=== PATIENT | male | born 1970 | race Caucasian/White ===

== ENCOUNTER 2017-08-04 07:21 | Emergency (ER) | payer OTHER ==
[~2017-08-04] VITALS: Wt 81.6 kg
[~2017-08-04 07:21] MED LIST: ATARAX,VISTARIL50 MG PO; AUGMENTIN 875 M1 TAB PO; BACTRIM 400 MG-1 TAB PO; BACTRIM DS 8001 TA1 PO; BACTROBAN OINT0.9 GM NAS; BENADRYL50 MG PO; CARBIDOPA/LEVOD1 TA1 PO; CIPRO500 MG PO; CLINDAMYCIN HC300 MG PO; CLINDAMYCIN300 MG PO; CLONIDINE0.1 MG PO; COUMADIN3 M1 PO; Coumadin2 MG PO; DAYPRO600 M1 PO; HYDROXYZINE PAM50 MG PO; KEFLEX500 MG PO; MIRTAZAPINE15 M2 PO; MOTRIN800 MG PO; NKHM; NKHM PO; ONDANSETRON HYDR4 M1 PO; ONDANSETRON4 MG PO; PERCOCET 325 MG1 TA2 PO; PYRIDIUM200 M1 PO; ROBAXIN750 MG PO; SINEMET 25-100M1 TAB PO; Septra Ds 800 M1 TAB PO; THERA1 TAB PO; VICODIN 5/500 505 MG PO; VICODIN 500 MG-1 TAB PO; ZOFRAN 4 MG ED2 TAB PO; ZYPREXA5 M1 PO
[2017-08-04] MEDS ORDERED: SEPTDS PO (07:57)
[2017-08-04] MEDS ORDERED: IBU800 MG PO (07:59)
[2017-08-04] MEDS ORDERED: Zofran4 MG PO (08:21)
== END 2017-08-04 08:21 | disposition home or self-care (01) ==
LOC: ED 07:21
DX: L02.413 Cutaneous abscess of right upper limb (principal); F11.10 Opioid abuse, uncomplicated

== ENCOUNTER 2018-08-21 15:40 | Emergency (ER) | payer MEDICAID ==
[~2018-08-21] VITALS: Ht 185.4 cm; Wt 76.2 kg
[~2018-08-21 15:40] MED LIST changes: +IBU800 MG PO; +SEPTDS PO; +Zofran4 MG PO
[2018-08-21 16:22] LABS: BASO # 0.1 10*3/uL (0.0-0.1); BASO % 0.8 % (0.0-1.0); EOS # 0.1 10*3/uL (0.0-0.4); EOS % 1.3 % (1.0-4.0); HEMATOCRIT 49.5 % (42.0-52.0); HEMOGLOBIN 17.6 g/dl (14.0-18.0); LYMPH # 2.5 10*3/uL (1.3-4.4); LYMPH % 29.3 % (27.0-41.0); MEAN CELL VOLUME 87.5 fl (80.0-94.0); MEAN CORPUSCULAR HGB 31.1 pg (27.0-31.0); MEAN CORPUSCULAR HGB CONC 35.6 g/dl (33.0-37.0); MEAN PLATELET VOLUME 8.8 fl (9.6-12.3); MONO # 0.5 10*3/uL (0.1-1.0); MONO % 5.2 % (3.0-9.0); NEUT # 5.4 10*3/uL (2.3-7.9); NEUT % 63.2 % (47.0-73.0); PLATELET COUNT AUTOMATED 336 10*3/uL (130-400); RED BLOOD COUNT 5.66 10*6/uL (4.50-5.90); RED CELL DISTRI WIDTH 12.6 % (0-14.5); WHITE BLOOD COUNT 8.6 10*3/uL (4.8-10.8)
[2018-08-21 16:36] LABS: ALBUMIN 4.1 gm/dl (3.1-4.5); ALKALINE PHOSPHATASE 69 U/L (45-117); BUN 14 mg/dl (7-24); CHLORIDE 106 mmol/L (98-107); LIPASE 223 U/L (73-393); SGOT/AST 29 IU/L (3-35); SGPT/ALT 98 U/L (12-78); SODIUM 138 mmol/L (136-145); TOTAL PROTEIN 9.3 gm/dL (6.4-8.2)
[2018-08-21] MEDS ORDERED: ZOFRAN4 MG PO (17:01)
[2018-08-21] MEDS ORDERED: PREDNISONE10 MG PO (17:01)
[2018-08-21] MEDS ORDERED: FLONASE ALLERG9.9 ML NAS (17:01)
[2018-08-21] MEDS ORDERED: CLARITIN10 MG PO (17:01)
[2018-12-02] MEDS ORDERED: DOXYCYCLINE100 M3 PO (22:16)
[2018-12-07] MEDS ORDERED: SEPTDS PO (14:21)
== END 2018-08-21 17:34 | disposition home or self-care (01) ==
LOC: ED 15:40
PROVIDERS: Nurse Practitioner Family
DX: B34.9 Viral infection, unspecified (principal); R03.0 Elevated blood-pressure reading, without diagnosis of hypertension; E78.5 Hyperlipidemia, unspecified; F17.200 Nicotine dependence, unspecified, uncomplicated; Z90.49 Acquired absence of other specified parts of digestive tract

== ENCOUNTER 2019-04-07 18:36 | Inpatient (IN) | payer MEDICAID ==
[~2019-04-07] VITALS: Ht 185.4 cm; Wt 83.1 kg
--- NOTE | ~2019-04-07 | EKG ---
[place], [place] ELECTROCARDIOGRAM REPORT NAME: GRADY ROBLES UNIT #: [id number] ROOM: 415 DOCTOR: CATHY DRAFT REPORT BIRTHDATE: [birth year] [facility] Test Date: 2019-04-07 Test Time: 19:16:09 Pat Name: GRADY ROBLES Department: Room: 415 Gender: M Seo Executive: : 1970 Requested By: SHERRI HASSAN DNP Order Number: [id number] Reading MD: Kelby Bose Measurements Intervals [place] Rate: 79 P: 59 NM: 169 QRS: 25 QRSD: 102 T: 46 QT: 391 QTc: 449 Interpretive Statements Sinus rhythm Lateral infarct, recent Borderline ST elevation, anterior leads Baseline wander in lead(s) V2,V6 Compared to ECG 12/03/2018 04:13:33 ST (T wave) deviation now present Myocardial infarct finding still present Electronically Signed On 04-08-2019 9:13:48 PDT by Kelby Bose CM:EKGRPT:ELECTROCARDIOGRAM REPORT 15 2 SHERRI MORGAN DRAFT REPORT SHERRI HASSAN DNP
[~2019-04-07 18:36] MED LIST changes: +CLARITIN10 MG PO; +DOXYCYCLINE100 M3 PO; +FLONASE ALLERG9.9 ML NAS; +PREDNISONE10 MG PO; +ZOFRAN4 MG PO
[2019-04-07 18:37] VITALS: BP 134/67
--- NOTE | 2019-04-07 19:15 | NUR ---
SCATTERED TRACK FOURNIER ON BUE AND BLE EXTREMITIES WITH TRACING INTO GROIN ON LEG.
[2019-04-07 19:32] LABS: BASO # 0.1 10*3/uL (0.0-0.1); BASO % 1.5 % (0.0-1.0); EOS # 0.6 10*3/uL (0.0-0.4); EOS % 6.9 % (1.0-4.0); HEMATOCRIT 38.4 % (42.0-52.0); HEMOGLOBIN 12.9 g/dl (14.0-18.0); LYMPH # 2.6 10*3/uL (1.3-4.4); LYMPH % 28.2 % (27.0-41.0); MEAN CELL VOLUME 89.1 fl (80.0-94.0); MEAN CORPUSCULAR HGB 29.9 pg (27.0-31.0); MEAN CORPUSCULAR HGB CONC 33.6 g/dl (33.0-37.0); MEAN PLATELET VOLUME 9.3 fl (9.6-12.3); MONO # 0.8 10*3/uL (0.1-1.0); MONO % 8.3 % (3.0-9.0); NEUT % 54.9 % (47.0-73.0); PLATELET COUNT AUTOMATED 314 10*3/uL (130-400); RED BLOOD COUNT 4.31 10*6/uL (4.50-5.90); RED CELL DISTRI WIDTH 12.4 % (0-14.5)
[2019-04-07 19:55] LABS: ALBUMIN 3.5 gm/dl (3.1-4.5); ALKALINE PHOSPHATASE 76 U/L (45-117); BUN 14 mg/dl (7-24); CHLORIDE 100 mmol/L (98-107); CREATININE 0.93 mg/dL (0.70-1.30); LIPASE 59 U/L (73-393); POTASSIUM 3.6 mmol/L (3.5-5.1); SGOT/AST 26 IU/L (3-35); SGPT/ALT 22 U/L (12-78); SODIUM 133 mmol/L (136-145); TOTAL PROTEIN 7.9 gm/dL (6.4-8.2)
[2019-04-07 19:56] LABS: TROPONIN I < 0.015 ng/ml (<0.045)
[2019-04-07 20:04] LABS: ACT PARTIAL THROMBO TIME 25.8 SECONDS (20.0-32.1)
--- NOTE | 2019-04-07 20:06 | NUR ---
COMPLAINING OF LEG CRAMPS AND REQUESTING POTASSIUM TABLET. LORETTA POLANCO MADE AWARE.
[2019-04-07 20:19] VITALS: BP 128/72
--- NOTE | 2019-04-07 20:19 | NUR ---
MEDICATED PER ORDERS AND BLANKET AND ICE WATER PROVIDED REQUESTED. DENIES ANY OTHER NEEDS AND IS IN NO OBVIOUS DISTRESS WHILE TALKING ON PHONE, BUT IS NOTED TO HAVE REESTLESS LEGS AND IS A BIT AGITATED WITH WHOMEVER HE IS ON THE PHONE WITH. WILL CONTINUE TO MONITOR.
--- NOTE | 2019-04-07 20:33 | NUR ---
STILL UNABLE TO PROVIDE URINE SPECIMEN. LIGHTS DIMMED AND REMINDED OF NEED FOR URINE ALEXEY. WILL ATTEMPT SHORTLY BUT DOES NOT FEEL THEURGE AT ALL AT THIS TIME.
--- NOTE | 2019-04-07 21:39 | NUR ---
UPDATED ON ROOM ASSIGNMENT AND DOES NOT WANT TO CHANGE INTO GOWN. DENIES WOUNDS AND IS NOT RECEPTIVE TO VISUAL EXAM OF BUTTOCKS AND PERIAREA.
--- NOTE | 2019-04-07 21:40 | NUR ---
SPOKE WITH HELENE, RECEIVING RN TO NOTIFY OF ETA TO ROOM. AWAITING OTHER NURSE TO RETURN BEFORE LEAVING FLOOR.
[2019-04-07 22:00] VITALS: BP 116/97; BP 119/71
--- NOTE | 2019-04-07 22:00 | NUR ---
Time: 2199 A 48 year old MALE admitted to 4E under services of SHERRI MCCALL DO. Pt. arrived via stretcher from ER. Chief complaint: CELLULITIS. SELVIN LIANG
--- NOTE | 2019-04-07 22:24 | NUR ---
PATIENT DENIES ANY HOME MEDICATIONS
[2019-04-07 22:30] VITALS: BP 116/97
--- NOTE | 2019-04-07 22:38 | NUR ---
MEDICATED WITH ROBAXIN FOR MUSCLE ACHES AND REQUIP FOR RESTLESS LEGS
--- NOTE | 2019-04-07 22:47 | NUR ---
PATIENT STATES THAT HE DOES NOT FEEL LIKE HE CAN URINATE AT THIS TIME. INSTRUCTED ON URINATING IN CUP PLACED IN RESTROOM FOR SAMPLES. VERBALIZED UNDERSTANDING
--- NOTE | 2019-04-07 23:10 | NUR ---
OFF FLOOR FOR CT
[2019-04-07 23:40] LABS: BILIRUBIN NEGATIVE (NEGATIVE); BLOOD TRACE-LYSED (NEGATIVE); CLARITY CLEAR (CLEAR); COLOR YELLOW (YELLOW); GLUCOSE NEGATIVE (NEGATIVE); KETONE NEGATIVE (NEGATIVE); LEUKO ESTERASE NEGATIVE (NEGATIVE); NITRITE NEGATIVE (NEGATIVE); SPECIFIC GRAVITY >= 1.030 (1.005-1.030); UROBILINOGEN 0.2 E.U./dl (0.2-1.0)
[2019-04-07 23:49] LABS: URINE AMPHETAMINES < 1000 (1000ng/ml); URINE BARBITURATES < 200 (200ng/ml); URINE BENZODIAZEPINES < 200 (200ng/ml); URINE CANNABINOIDS (THC) < 50 (50ng/ml); URINE COCAINE > 300 (300ng/ml); URINE METHADONE < 300 (300ng/ml); URINE OPIATES > 300 (300ng/ml)
[2019-04-07 23:53] LABS: URINE PHENCYCLIDINE < 25 (25ng/ml)
[2019-04-07 23:56] LABS: WBC 0-2 wbc/hpf (0-5)
--- NOTE | 2019-04-08 01:58 | NUR ---
PATIENT RESTING IN BED WITH EYES CLOSED. MEDICATIONS SEEM EFFECTIVE
[2019-04-08 04:00] VITALS: BP 93/58
--- NOTE | 2019-04-08 05:02 | NUR ---
DR PFEIFFER AWARE OF BLOOD PRESSURE. STATES TO NOT GIVE SCHEDULED CLONIDINE
[2019-04-08 05:52] LABS: BUN 11 mg/dl (7-24); CHLORIDE 102 mmol/L (98-107); CHOLESTEROL 118 mg/dL (<200); POTASSIUM 3.5 mmol/L (3.5-5.1); SODIUM 137 mmol/L (136-145); TRIGLYCERIDES 69 mg/dl (<150); VLDL CHOLESTEROL 14 mg/dL (6-40)
[2019-04-08 05:53] LABS: HDL CHOLESTEROL 37 mg/dl (40-60); LDL CHOLESTEROL 67 mg/dL (9-159)
[2019-04-08 06:01] LABS: BASO # 0.1 10*3/uL (0.0-0.1); BASO % 1.5 % (0.0-1.0); EOS # 0.6 10*3/uL (0.0-0.4); HEMATOCRIT 33.4 % (42.0-52.0); HEMOGLOBIN 11.2 g/dl (14.0-18.0); LYMPH # 2.7 10*3/uL (1.3-4.4); LYMPH % 39.1 % (27.0-41.0); MEAN CELL VOLUME 89.3 fl (80.0-94.0); MEAN CORPUSCULAR HGB 29.9 pg (27.0-31.0); MEAN CORPUSCULAR HGB CONC 33.5 g/dl (33.0-37.0); MEAN PLATELET VOLUME 9.6 fl (9.6-12.3); MONO # 0.7 10*3/uL (0.1-1.0); MONO % 10.1 % (3.0-9.0); NEUT # 2.7 10*3/uL (2.3-7.9); PLATELET COUNT AUTOMATED 272 10*3/uL (130-400); RED BLOOD COUNT 3.74 10*6/uL (4.50-5.90); RED CELL DISTRI WIDTH 12.5 % (0-14.5); WHITE BLOOD COUNT 6.8 10*3/uL (4.8-10.8)
--- NOTE | 2019-04-08 06:53 | NUR ---
DR JANG AWARE OF PODIETRY CONSULT. STATES TO MAKE PATIENT NPO AND HE WILL SEE THE PATIENT TODAY
--- NOTE | 2019-04-08 08:43 | NUR ---
Awake and alert. Reddened rt. foot and LEFt knee to mid thigh. Dr. Rivera in.
[2019-04-08 12:00] VITALS: BP 95/55
[2019-04-08 16:00] VITALS: BP 131/71
--- NOTE | 2019-04-08 17:33 | NUR ---
1412 Medicated for anxiety and discomfort. per PA. . Pt. states is dope sick and might leave. Dr. Rivera was called and is aware. current assessment reveals pt. in constant motion, informed that prn meds are due at 8 pm.
--- NOTE | 2019-04-08 17:40 | NUR ---
Podiatry in this am. Wrapped rt. foot to knee and cancelled NPO> pt. is taking meals well.
[2019-04-08 20:00] VITALS: BP 103/55
--- NOTE | 2019-04-08 20:11 | NUR ---
PATIENT MEDICATED WITH PRN BENTYL, ROBAXIN, VISTARIL, AND ZOFRAN FOR C/O STOMACH CRAMPS, NAUSEA, RESTLESSNESS, AND ANXIETY. WILL MONITOR FOR EFFECTIVENESS.
--- NOTE | 2019-04-08 20:15 | NUR ---
DAX HICKEY D/T BP 103/55, P 50.
--- NOTE | 2019-04-08 21:00 | NUR ---
PATIENT STATED THE PRN MEDICATIONS WERE EFFECTIVE. PATIENT ASKED FOR A BOX LUNCH AND SOME ICE CREAM. SNACK PROVIDED. PATIENT WATCHING TV. CALL LIGHT WITHIN REACH.
[2019-04-09] VITALS: BP 113/61
--- NOTE | 2019-04-09 01:35 | NUR ---
LAB CALLED TO REPORT CRITICAL RESULT OF POSITIVE BLOOD CULTURES IN AEROBIC BOTTLE THAT HAS GRAM + COCCI IN CLUSTERS. DR. PFEIFFER CALLED BUT NO ANSWER. WILL TRY AGAIN.
--- NOTE | 2019-04-09 01:54 | NUR ---
ATTEMPTED TO CALL DR. PFEIFFER AGAIN REGARDING POSITIVE BLOOD CULTURES.
--- NOTE | 2019-04-09 01:55 | NUR ---
DR. PFEIFFER NOTIFIED OF POSITIVE BLOOD CULTURE. ORDER TO REDRAW BLOOD CULTURES.
[2019-04-09 06:07] VITALS: BP 102/58
--- NOTE | 2019-04-09 06:32 | NUR ---
GRADY ROBLES [id number] Please refer to the physician's history and physical for past medical history, comorbid conditions, and allergies. Diagnosis: CELLULITIS, THROMBOPHLEBITIS OF LEG Gilberto Score: 22,LOW OR NO RISK WOUND DESCRIPTIONS: Dressing intact to right lower extremity. Patient stated the foot doctor changed the dressing yesterday. Left knee is red and blanchable at time of assessment. Right foot dressing intact at time of assessment. No drainage noted at time of assessment. Surface the patient is resting on: Isoflex SKIN PREVENTION RECOMMENDATION: 1. Pressure redistribution support surface as appropriate 2. Elevate heels 3. Remove boots/TEDS every shift and reapply 4. Head of bed 30 degrees as tolerated 5. Assess nutrition and hydration 6. Manage moisture 7. Avoid the use of containment devices while in bed 8. Use absorptive products on surfaces limit layers of linens on bed 9. Turn and reposition every 1-2 hours in bed and every 1 hour in chair as tolerated 10. Weight shifts every 15 minutes while up in chair 11. Offloading with pillows or device to keep heels elevated off bed 12. Monitor skin at least every shift 13. Inspect under medical devices twice a day WOUND TREATMENT RECOMMENDATIONS: Patient stated he will follow up with podiatry upon discharge.
[2019-04-09 08:00] VITALS: BP 126/72
[2019-04-09 12:00] VITALS: BP 117/89
--- NOTE | 2019-04-09 13:19 | NUR ---
MOTRIN GIVEN FOR GENERALIZED C/O PAIN AND ACHING. CALL LIGHT IN REACH. ABX INFUSING WITH EASE.
--- NOTE | 2019-04-09 15:32 | NUR ---
PER PT A FIREND TOLD HIM ABOUT DRUGS HIDDEN IN HIS HOUSE AND PATIENT CANT STOP THINKING ABOUT IT AND NEEDS TO LEAVE, PT ENCOURAGED TO STAY PRN MEDICATIOSN OFFERED PT LEFT AMA, NURSING SUPERIVSOR NOTIFIED, BILL SUBRAMANIAN NOTIFIED
--- NOTE | 2019-04-09 15:55 | NUR ---
Foreign Language Interpreter in to talk to patient. Patient states lives at HOME with MOTHER. There are NO steps in the home. Physician: NONE [facility]acy[facility] Home health services: NONE Patient's level of ADLs: INDEPENDENT Patient has working utilities: YES DME: NONE Follow-up physician's appointment after d/c: WILL PICK ONE AND MAKE APPOINTMENT Does patient want to access PORTAL?: NO Discharge plan PT LIVES AT HOME WITH HIS MOTHER AND IS INDEPENDENT IN HIS CARE. DENIES HOME NEEDS ON DISCHARGE. WILL RETURN HOME WITH MOTHER. WILL CONTINUE TO FOLLOW. STATES HE WILL HAVE A RIDE HOME. . EDGAR MCCURDY
--- NOTE | 2019-04-10 10:54 | NUR ---
Received call from Jeri at [facility] [facility] stating she will need clinicals by end of business day today. Printed and faxed clinicals to [phone]
--- NOTE | 2019-04-11 07:57 | NUR ---
[facility] FINAL REPORT CALLED FROM BLOOD CULTURES OBTAINED ON 04/07/19. LAB STATES THAT PATIENT WAS ADMITTED TO FLOOR AND LEFT AMA.
--- NOTE | 2019-04-11 08:03 | NUR ---
NOTIFIED DR ROBERTSON OF POSITIVE BLOOD CULTURE RESULTS. STATES TO CALL PATIENT AND NOTIFY THEM TO COME BACK TO THE HOSPITAL.
--- NOTE | 2019-04-11 08:05 | NUR ---
ATTEMPTED TO CALL PATIENT TWICE. LEFT MESSAGE FOR GRADY TO RETURN CALL TO ER.
== END 2019-04-09 15:40 | disposition left against medical advice (07) | DRG 294 ==
LOC: ED 18:36 → EDHOLD 21:03 → 4E 21:03
PROVIDERS: Nurse Practitioner Family; Student in an Organized Health Care Education/Training Program; ADMIT Internal Medicine
DX: I80.3 Phlebitis and thrombophlebitis of lower extremities, unspecified (principal); E87.1 Hypo-osmolality and hyponatremia; L03.116 Cellulitis of left lower limb; L03.115 Cellulitis of right lower limb; E44.0 Moderate protein-calorie malnutrition; B96.89 Other specified bacterial agents as the cause of diseases classified elsewhere; M25.462 Effusion, left knee; E78.5 Hyperlipidemia, unspecified; B19.20 Unspecified viral hepatitis C without hepatic coma; F32.9 Major depressive disorder, single episode, unspecified; D64.9 Anemia, unspecified; Z53.21 Procedure and treatment not carried out due to patient leaving prior to being seen by health care provider; R00.1 Bradycardia, unspecified; E83.41 Hypermagnesemia; F11.10 Opioid abuse, uncomplicated; F14.10 Cocaine abuse, uncomplicated; Z86.14 Personal history of Methicillin resistant Staphylococcus aureus infection; Z86.718 Personal history of other venous thrombosis and embolism; Z90.49 Acquired absence of other specified parts of digestive tract; Z87.891 Personal history of nicotine dependence; Z82.49 Family history of ischemic heart disease and other diseases of the circulatory system; Z82.3 Family history of stroke; Z80.8 Family history of malignant neoplasm of other organs or systems; Z82.69 Family history of other diseases of the musculoskeletal system and connective tissue; Z68.24 Body mass index [BMI] 24.0-24.9, adult

== ENCOUNTER 2020-04-16 18:43 | Inpatient (IN) | payer MEDICAID ==
[~2020-04-16] VITALS: Ht 185.4 cm; Wt 83.5 kg
[~2020-04-16 18:43] MED LIST changes: +AUGMENTIN 875-875 MG PO
[2020-04-16 18:51] VITALS: BP 132/83
--- NOTE | 2020-04-16 20:59 | NUR ---
PT TO ROOM VIA W/C AT THIS TIME.
[2020-04-16 22:55] LABS: BASO # 0.1 10*3/uL (0.0-0.1); BASO % 0.6 % (0.0-1.0); EOS # 0.3 10*3/uL (0.0-0.4); EOS % 2.1 % (1.0-4.0); HEMATOCRIT 42.3 % (42.0-52.0); LYMPH # 2.4 10*3/uL (1.3-4.4); LYMPH % 20.5 % (27.0-41.0); MEAN CELL VOLUME 85.8 fl (80.0-94.0); MEAN CORPUSCULAR HGB 27.6 pg (27.0-31.0); MEAN CORPUSCULAR HGB CONC 32.2 g/dl (33.0-37.0); MEAN PLATELET VOLUME 8.7 fl (9.6-12.3); MONO # 0.8 10*3/uL (0.1-1.0); MONO % 6.6 % (3.0-9.0); NEUT # 8.2 10*3/uL (2.3-7.9); NEUT % 69.9 % (47.0-73.0); PLATELET COUNT AUTOMATED 356 10*3/uL (130-400); RED BLOOD COUNT 4.93 10*6/uL (4.50-5.90); RED CELL DISTRI WIDTH 13.2 % (0-14.5); WHITE BLOOD COUNT 11.7 10*3/uL (4.8-10.8)
[2020-04-16 23:10] LABS: ALBUMIN 3.6 gm/dl (3.1-4.5); ALKALINE PHOSPHATASE 94 U/L (45-117); BUN 9 mg/dl (7-24); CHLORIDE 99 mmol/L (98-107); LIPASE 66 U/L (73-393); SGOT/AST 44 IU/L (3-35); SGPT/ALT 78 U/L (12-78); SODIUM 134 mmol/L (136-145); TOTAL PROTEIN 9.5 gm/dL (6.4-8.2)
[2020-04-17 00:28] LABS: URINE AMPHETAMINES < 1000 (1000ng/ml); URINE BARBITURATES < 200 (200ng/ml); URINE BENZODIAZEPINES < 200 (200ng/ml); URINE CANNABINOIDS (THC) < 50 (50ng/ml); URINE COCAINE < 300 (300ng/ml); URINE METHADONE < 300 (300ng/ml); URINE OPIATES < 300 (300ng/ml)
[2020-04-17 00:29] LABS: URINE PHENCYCLIDINE < 25 (25ng/ml)
--- NOTE | 2020-04-17 00:35 | NUR ---
RESTORIL EFFECTIVE FOR INSOMNIA. PT. DROWSY
--- NOTE | 2020-04-17 06:49 | NUR ---
PT RESTING IN BED WITH EYES CLOSED NO DISTRESS NOTED RN WILL CONTINUE TO MONITOR
[2020-04-17 08:00] VITALS: BP 131/73
--- NOTE | 2020-04-17 09:39 | NUR ---
PT RESTING IN ROOM, REPORTS HE IS IN PAIN, ID RESIDENCE WAS AT THE BEDSIDE, REPORTS HE WAS WAITING ON HIS ATTENDING FOR ORDERES. REPORTS HE WAS GOING TO ORDER PAIN MEDICATION BUT WAS GOING TO WAIT ON THE ADVISEMENT OF HIS ATTENDING. PT IS REFUSING IV ANTIBOTICS TO BE STARTED AND LOVENOX INJECTION, PT REPORTS HE IS JUST TO LEAVE W/O PAIN MEDICATED, ID PAGED.
--- NOTE | 2020-04-17 10:33 | NUR ---
WOUND CULTURE WAS ORDERED ON NOGHT SHIFT AND WAS NOT COLLECTED, WOUND CARE WAS HERE THIS AM AND DRESSED THE WOUND, PT IS TO POSSIBLE BE TAKING TO SURGERY. I HAVE NOT YET HEARD FROM ID. WAITING FOR THE CALL.
--- NOTE | 2020-04-17 10:47 | NUR ---
DR VILLARREAL AT THE BEDSIDE, PAIN AND NAUSEA MEDICATION ORDERED. PT IS NPO FOR SURGERY SOMTIMR TODAY. RESIDENCE DR NUNN NOTIFIED.
[2020-04-17 12:00] VITALS: BP 128/71
[2020-04-17 14:03] VITALS: BP 118/71
--- NOTE | 2020-04-17 15:33 | NUR ---
NOTIFIED DR NUNN PT IS REQUESTING PAIN MEDICATION. WAITING ON MED ORDERS.
--- NOTE | 2020-04-17 16:56 | NUR ---
PT REPORTS HE I SNOT HAPPY WITH NORCO FOR PAIN, PT REQUESTING IV DILAUDID. STATES HE WASNTS TO SIGN OUT AMA IF HIS REQUEST IS NOT MEANT. DR NUNN NOTIFIED. REPORTS HE WILL LOOK AT THE PAIN MED LIST, STATES OK FOR HIM TO SIGN OUT IS THAT IS THE PT REQUEST.
--- NOTE | 2020-04-17 17:51 | NUR ---
PT MEDICATED WITH 1 MG IV MORPHINE. PT IS HAPPY AT THIS TIME. REPORTS HE WILL WAIT TO SEE IF IT WORKS TO DECIDE IF I WANT TO STAY.
--- NOTE | 2020-04-17 18:30 | NUR ---
PT WAS HAPPY WITH THE MORPHINE, STATES HE WILL STAY.
[2020-04-17 19:57] VITALS: BP 112/78
--- NOTE | 2020-04-17 19:59 | NUR ---
PT RESTING QUIELTY, NO DISTRESS NOTED AT THIS TIME. CALL LIGHT IN REACH.
[2020-04-17 20:25] VITALS: BP 136/75
--- NOTE | 2020-04-17 20:25 | NUR ---
PATIENT ADMITTED TO ROOM 505 BED 2 FROM ED HOLD. PATIENT BROUGHT WITH BELONGINGS. Time: 2024 A 49 year old male admitted to 5E under services of AMOL SALGADO DO. Pt. arrived via stretcher from ER. Chief complaint: cellulitis lower right leg. ELO HERNANDEZ
--- NOTE | 2020-04-17 20:47 | NUR ---
TYLENOL GIVEN PER ORDER FOR HEADACHE RATED "6". SEE MAR.
--- NOTE | 2020-04-17 21:45 | NUR ---
TYLENOL HELPED WITH HEADACHE PAIN PER PATIENT.
--- NOTE | 2020-04-17 22:10 | NUR ---
PATIENT C/O FEELING "ANTSY" VISIBILY SEEING PATIENT SHAKING FEET AND MOVING AROUND. CALLED DR. GU AND NOTIFIED HIM OF THIS AND ORDERS TO BE RECEIVED.
--- NOTE | 2020-04-17 23:07 | NUR ---
ATIVAN GIVEN FOR ANXIETY, REQUIP GIVEN FOR RESTLESS LEGS, MORPHINE GIVEN FOR PAIN RATED "8" IN RIGHT LOWER LEG PER PT. SEE MAR.
--- NOTE | 2020-04-17 23:38 | NUR ---
RESTORIL GIVE PER ORDER FOR PATIENT REQUEST FOR SOMETHING TO HELP HIM SLEEP. SEE MAR.
[2020-04-18] VITALS: BP 131/76
--- NOTE | 2020-04-18 | NUR ---
ATIVAN AND MORPHINE EFFECTIVE FOR CALMING PATIENT AND PAIN PER PT.
--- NOTE | 2020-04-18 00:25 | NUR ---
PATIENT AWAKEND AND WANTED SOMETHING MORE FOR PAIN. RESTORIL WAS EFFECTIVE. NORCO FOR PAIN RIGHT LOWER LEG RATED "6" SEE MAR.
--- NOTE | 2020-04-18 01:25 | NUR ---
PATIENT SLEEPING. NORCO EFFECTIVE. RESP EASY AND REG.
--- NOTE | 2020-04-18 03:31 | NUR ---
24 HR chart check completed.
--- NOTE | 2020-04-18 06:17 | NUR ---
MORPHINE GIVEN PER ORDER FOR PAIN RATED "8' RIGHT LOWER LEG. SEE MAR.
[2020-04-18 06:31] LABS: CHLORIDE 107 mmol/L (98-107); POTASSIUM 3.9 mmol/L (3.5-5.1); SODIUM 138 mmol/L (136-145)
[2020-04-18 06:43] LABS: ALBUMIN 2.6 gm/dl (3.1-4.5); BUN 8 mg/dl (7-24); CREATININE 0.77 mg/dL (0.70-1.30); SGOT/AST 32 IU/L (3-35); SGPT/ALT 49 U/L (12-78); TOTAL PROTEIN 7.5 gm/dL (6.4-8.2)
[2020-04-18 06:44] LABS: ALKALINE PHOSPHATASE 71 U/L (45-117)
--- NOTE | 2020-04-18 07:01 | NUR ---
MORPHINE HELPS SOME WITH PAIN PER PT.
[2020-04-18 07:17] LABS: BASO # 0.1 10*3/uL (0.0-0.1); BASO % 1.1 % (0.0-1.0); EOS # 0.3 10*3/uL (0.0-0.4); EOS % 4.1 % (1.0-4.0); HEMATOCRIT 33.1 % (42.0-52.0); LYMPH # 2.5 10*3/uL (1.3-4.4); LYMPH % 33.6 % (27.0-41.0); MEAN CELL VOLUME 86.2 fl (80.0-94.0); MEAN CORPUSCULAR HGB 27.6 pg (27.0-31.0); MEAN PLATELET VOLUME 8.6 fl (9.6-12.3); MONO # 0.7 10*3/uL (0.1-1.0); MONO % 9.7 % (3.0-9.0); NEUT # 3.9 10*3/uL (2.3-7.9); NEUT % 51.1 % (47.0-73.0); PLATELET COUNT AUTOMATED 349 10*3/uL (130-400); RED BLOOD COUNT 3.84 10*6/uL (4.50-5.90); RED CELL DISTRI WIDTH 13.2 % (0-14.5); WHITE BLOOD COUNT 7.5 10*3/uL (4.8-10.8)
[2020-04-18 08:00] VITALS: BP 134/78
--- NOTE | 2020-04-18 10:05 | NUR ---
NORCO 5/325 MG GIVEN FOR C/O RIGHT LEG,04/19.
--- NOTE | 2020-04-18 10:58 | NUR ---
GAS ENGINE PERFORMANCE ENGINEER CONTACTED PATIENT INSURANCE. THIS PATIENT DOES HAVE A TRANSPORTATION BENEFIT. PATIENT WOULD NEED TO CALL [phone] TO ARRANGE TRANSPORTATION. ONCE CALLED IT COULD TAKE APPROXIMATELY 1 HOUR FOR TRANSPORT TO ARRIVE. SLUDGE FILTRATION ATTENDANT IS AWARE.
--- NOTE | 2020-04-18 11:32 | NUR ---
Molding And Trim Installer in to talk to patient. Patient states lives at HOME with MOTHER. There are 12 steps in the home. Physician: NONE AT THIS TIME [facility] Home health services: NONE Patient's level of ADLs: INDEPENDENT Patient has working utilities: YES DME: NONE Follow-up physician's appointment after d/c: WILL BE MADE BY HOSPITALIST NURSE DIRECTOR ON DISCHARGE Does patient want to access PORTAL?: NO Discharge plan PT LIVES AT HOME WITH MOTHER AND IS INDEPENDENT IN HIS CARE. PT STATES HE PLANS TO RETURN HOME WITH MOTHER ON DISCHARGE WHEN MEDICALLY STABLE. DENIES NEEDS AT THIS TIME. STATES HE WILL NEED A RIDE HOME. MAINTENANCE TRUCK DRIVER CALLED INSURANCE AND PT DOES HAVE BENEFITS TO TAKE HIM HOME. NUMBER TO CALL IS IN HER NOTES. WILL CONTINUE TO FOLLOW. EDGAR MCCURDY
[2020-04-18 12:00] VITALS: BP 132/55
--- NOTE | 2020-04-18 13:05 | NUR ---
SPOKE TO [facility] RN AND THEY ARE CURRENTLY DOING ADMISSION BUT WOULD CHECK BACK LATER TO SEE IF THEY COULD ATTEMPT IV ACCESS. PT CURRENTLY STILL HAS NO IV ACCESS. DR NUNN AWARE.
--- NOTE | 2020-04-18 14:07 | NUR ---
NORCO 5/325 MG GIVEN FOR C/O PAIN,02/17.
--- NOTE | 2020-04-18 14:07 | NUR ---
NORCO 5/325 MG GIVEN FOR C/O PAIN TO RIGHT LEG,02/17.
[2020-04-18 16:00] VITALS: BP 144/74
--- NOTE | 2020-04-18 16:50 | NUR ---
DR NUNN PLACED RIGHT SUBCLAVIAN CVC WITHOUT DIFFICULTY. PT TOLERATED WELL.
--- NOTE | 2020-04-18 19:30 | NUR ---
PT RESTING IN BED. RESPS EASY AND NON LABORED. NO S/S OF DISTRESS NOTED. VSS. WHITE BOARD UPDATED. POC DISCUSSED W PT.A/O X3. RIGHT IJ IV NOTED- DRSG C/D/I. C/O 04/19 UNBEARABLE PAIN TO RLE-DRESSING C/D/I. RESTING IN BED WATCHING TV. WILL CONTINUE TO MONITOR. CALL LIGHT WITHIN REACH.
[2020-04-18 20:00] VITALS: BP 133/75
--- NOTE | 2020-04-18 20:54 | NUR ---
SPOKE W DR BRIZUELA REGARDING PTS COMPLAINTS OF PAIN. STATES HE WILL BE UP TO TALK WITH THE PATIENT.
--- NOTE | 2020-04-18 21:07 | NUR ---
DR BRIZUELA INTO SEE PT
--- NOTE | 2020-04-18 22:29 | NUR ---
P C/O 6/10 ACHING/THROBBING RLE PAIN, ALSO REQUESTING SLEEPING PILL.MEDICATED PER ORDER. RESPS EASY AND NON LABORED. WILL CONTINUE TO MONITOR FOR RELIEF. VOICES NO OTHER CONCERNS. CALL LIGHT WITHIN REACH.
--- NOTE | 2020-04-18 23:29 | NUR ---
MEDICATION MOSTLY EFFECTIVE PER PT . STATES HE WANTS TORADOL AT MIDNIGHT.
[2020-04-19] VITALS: BP 130/70
--- NOTE | 2020-04-19 | NUR ---
PT REQUESTING HIS PAIN SHOT. C/O 03/20 RLE PAIN. MEDICATED PER ORDER. WILL MONITOR FOR RELIEF. RESPS EASY AND NON LABORED. SITTING UP IN BED WATCHING TV.CALL LIGHT WITHIN REACH.
--- NOTE | 2020-04-19 00:41 | NUR ---
TORADOL APPEARS EFFECTIVE, PT SLEEPING. RESPS EASY AND NONLABORED. NO S/S OF DISTRESS NOTED. CALL LIGHT WITHIN REACH
--- NOTE | 2020-04-19 02:27 | NUR ---
PT STATING HE HAS BEEN UP ALL NIGHT AND UNABLE TO SLEEP. CALLED DR BRIZUELA AND INFORMED HIM OF THIS-STATES HE WILL PUT ORDERS IN.
--- NOTE | 2020-04-19 02:37 | NUR ---
MEDICATED WITH X1 DOSE OF IV BENEDRYL.WILL CONTINUE TO MONITOR.RESPS EASY AND NON LABORED. CALL LIGHT WITHIN REACH.
--- NOTE | 2020-04-19 03:30 | NUR ---
BENEDRYL APPEARS EFFECTIVE. PT SLEEPING. RESPS EASY AND NON LABORED. CALL LIGHT WITHIN REACH.
--- NOTE | 2020-04-19 03:50 | NUR ---
24 HR chart check completed.
--- NOTE | 2020-04-19 05:50 | NUR ---
PT C/O 02/17 LEG PAIN AND MUSCLE CRAMPS. MEDICATED PER ORDER. WILL MONITOR FOR RELIEF. RESPS EASY AND NON LABORED. CALL LIGHT WITHIN REACH.
--- NOTE | 2020-04-19 05:54 | NUR ---
LAB CALLED WITH CRITICAL VANCO TROUGH OF 20.9. NOTIFIED.
--- NOTE | 2020-04-19 05:59 | NUR ---
VANC STOPPED D/T TROUGH BEING 20.9 THIS MORNING.
--- NOTE | 2020-04-19 06:43 | NUR ---
MEDICATION APPEARS EFFECTIVE. PT SLEEPING. RESPS EASY AND NON LABORED. CALL LIGHT IWTHIN REACH.
[2020-04-19 08:00] VITALS: BP 130/70
--- NOTE | 2020-04-19 08:00 | NUR ---
Neurological: awake,alert,oriented Respiratory: no problem Breath sounds: clear Cough: none Cardiovascular: no problem Gastrointestinal: soft Genito/Urinary: no problem Musculoskeketal: AMBULATORY BEAR KNOX
[2020-04-19 12:00] VITALS: BP 143/76
[2020-04-19 16:00] VITALS: BP 135/83
[2020-04-19 20:00] VITALS: BP 148/63
--- NOTE | 2020-04-19 20:30 | NUR ---
NORCO GIVEN PER PATIENT REQUEST FOR COMPLAINTS OF PAIN RATED 7/10. WILL ASSESS EFFECTIVENESS.
--- NOTE | 2020-04-19 21:30 | NUR ---
NORCO EFFECTIVE PER PATIENT. WILL CONTINUE TO MONITOR.
--- NOTE | 2020-04-19 22:58 | NUR ---
RESTORIL GIVEN PER PATIENT REQUEST FOR COMPLAINTS OF INSOMNIA. WILL ASSESS EFFECTIVENESS.
[2020-04-20] VITALS: BP 152/76
--- NOTE | 2020-04-20 00:44 | NUR ---
NORCO GIVEN PER PATIENT REQUEST FOR COMPLAINTS OF PAIN RATED 8/10 IN LEFT FOOT WHERE WOUNDS ARE. WILL ASSESS EFFECTIVENESS.
--- NOTE | 2020-04-20 01:40 | NUR ---
NORCO EFFECTIVE PER PATIENT.
--- NOTE | 2020-04-20 05:18 | NUR ---
TORADOL GIVEN PER PATIENT REQUEST FOR COMPLAINTS OF PAIN IN LOWER LEG RATED 7/10. WILL ASSESS EFFECTIVENESS.
[2020-04-20 06:02] LABS: BUN 12 mg/dl (7-24); CHLORIDE 107 mmol/L (98-107); CREATININE 0.78 mg/dL (0.70-1.30); POTASSIUM 3.7 mmol/L (3.5-5.1); SODIUM 140 mmol/L (136-145)
[2020-04-20 06:06] LABS: BASO # 0.1 10*3/uL (0.0-0.1); BASO % 1.1 % (0.0-1.0); EOS # 0.3 10*3/uL (0.0-0.4); LYMPH # 3.3 10*3/uL (1.3-4.4); MEAN CELL VOLUME 86.4 fl (80.0-94.0); MEAN CORPUSCULAR HGB 27.2 pg (27.0-31.0); MEAN CORPUSCULAR HGB CONC 31.5 g/dl (33.0-37.0); MEAN PLATELET VOLUME 8.6 fl (9.6-12.3); MONO # 0.5 10*3/uL (0.1-1.0); MONO % 5.4 % (3.0-9.0); NEUT # 4.1 10*3/uL (2.3-7.9); PLATELET COUNT AUTOMATED 348 10*3/uL (130-400); RED BLOOD COUNT 3.82 10*6/uL (4.50-5.90); RED CELL DISTRI WIDTH 13.1 % (0-14.5); WHITE BLOOD COUNT 8.3 10*3/uL (4.8-10.8)
[2020-04-20 08:00] VITALS: BP 152/73
--- NOTE | 2020-04-20 08:00 | NUR ---
Neurological: awake,alert,oriented Respiratory: easy, regular,no distress Breath sounds: clear Cough: none Cardiovascular: no problem Gastrointestinal: soft Genito/Urinary: no problem Musculoskeketal: Surgical incision BEAR KNOX
--- NOTE | 2020-04-20 11:00 | NUR ---
PLACED IN CONTACT ISOLATION D/T WC COME BACK WITH MRSA.
[2020-04-20 12:00] VITALS: BP 130/86
[2020-04-20 16:00] VITALS: BP 170/80
--- NOTE | 2020-04-20 16:32 | NUR ---
C/O LEG PAIN. MEDICATED PER PRN ORDER.
[2020-04-20 20:00] VITALS: BP 139/91
--- NOTE | 2020-04-20 20:59 | NUR ---
MEDICATED WITH PRN NORCO FOR C/O PAIN IN LEG RATED 8/10 ON A 0/10 PAIN SCALE. WILL MONITOR
--- NOTE | 2020-04-20 21:34 | NUR ---
MEDICATION SOMEWHAT EFFECTIVE PER PATIENT
--- NOTE | 2020-04-20 23:51 | NUR ---
MEDICATED WITH PRN RESTORIL FOR C/O SLEEPLESSNESS. WILL MONITOR
[2020-04-21] VITALS: BP 144/81
--- NOTE | 2020-04-21 00:51 | NUR ---
PATIENT RESTING WITH EYES CLOSED. MEDICATION SEEMS EFFECTIVE
--- NOTE | 2020-04-21 04:01 | NUR ---
PATIENT RESTING IN BED WITH NO S/S OF DISTRESS. BED IN LOWEST POSITION, CALL LIGHT IN REACH
[2020-04-21 07:00] LABS: BASO # 0.1 10*3/uL (0.0-0.1); BASO % 0.9 % (0.0-1.0); EOS # 0.4 10*3/uL (0.0-0.4); EOS % 3.9 % (1.0-4.0); HEMATOCRIT 33.6 % (42.0-52.0); LYMPH # 3.4 10*3/uL (1.3-4.4); LYMPH % 36.8 % (27.0-41.0); MEAN CELL VOLUME 86.8 fl (80.0-94.0); MEAN CORPUSCULAR HGB 27.6 pg (27.0-31.0); MEAN CORPUSCULAR HGB CONC 31.8 g/dl (33.0-37.0); MEAN PLATELET VOLUME 9.1 fl (9.6-12.3); MONO # 0.5 10*3/uL (0.1-1.0); MONO % 5.8 % (3.0-9.0); NEUT # 4.7 10*3/uL (2.3-7.9); NEUT % 51.5 % (47.0-73.0); PLATELET COUNT AUTOMATED 343 10*3/uL (130-400); RED BLOOD COUNT 3.87 10*6/uL (4.50-5.90); RED CELL DISTRI WIDTH 13.2 % (0-14.5); WHITE BLOOD COUNT 9.2 10*3/uL (4.8-10.8)
[2020-04-21 07:12] LABS: BUN 12 mg/dl (7-24); CHLORIDE 107 mmol/L (98-107); CREATININE 0.83 mg/dL (0.70-1.30); POTASSIUM 3.6 mmol/L (3.5-5.1); SODIUM 141 mmol/L (136-145)
[2020-04-21 08:00] VITALS: BP 142/89
--- NOTE | 2020-04-21 08:00 | NUR ---
Neurological: awake,alert,oriented Respiratory: easy, regular,no distress Breath sounds: clear Cough: none Cardiovascular: no problem Gastrointestinal: adequate output Genito/Urinary: no problem Musculoskeketal: AMBULATORY BEAR KNOX
[2020-04-21 12:00] VITALS: BP 140/76
--- NOTE | 2020-04-21 12:04 | NUR ---
C/O RT LEG PAIN. ADMINISTERED PRN PAIN MEDICATION PER ORDER.
--- NOTE | 2020-04-21 13:00 | NUR ---
PAIN MEDICATION EFFECTIVE.
--- NOTE | 2020-04-21 13:59 | NUR ---
PT CONTINUES TO STATE HE WILL RETURN HOME ON DISCHARGE WITH NO NEW NEEDS.
[2020-04-21] MEDS ORDERED: DOXYCYCLINE100 M3 PO (15:47)
[2020-04-21 16:00] VITALS: BP 169/78
--- NOTE | 2020-04-21 17:03 | NUR ---
C/O RT. LEG PAIN. ADMINISTERED PRN MEDICATION PER ORDER.
--- NOTE | 2020-04-21 17:30 | NUR ---
REMOVED CVP LINE TO RT.IJ. CATH. INTACT. MINIMAL BLEEDING NOTED. PRESSURE APPLIED THEN PRESSURE DRESSING APPLIED. WILL MONITOR.
--- NOTE | 2020-04-21 18:00 | NUR ---
PAIN MEDS EFFECTIVE
--- NOTE | 2020-04-21 18:28 | NUR ---
PRESSURE DRESSING TO RT. NECK INTACT WITH NO SHADOWING. GAVE DISCHARGE ORDERS AND PATIENT VERBALIZED UNDERSTANDING. LEFT AMBULATORY TO ER FOR HIS RIDE. TOOK ALL BELONGINGS WITH HIM.
== END 2020-04-21 19:28 | disposition home or self-care (01) | DRG 602 ==
LOC: ED 18:43 → 5E 04-17 00:20 → EDHOLD 04-17 00:20 → 5E 04-17 19:07
PROVIDERS: Internal Medicine; Physician Assistant; ADMIT Family Medicine; ATTEND Family Medicine
DX: L03.115 Cellulitis of right lower limb (principal); E43 Unspecified severe protein-calorie malnutrition; E87.2 Acidosis; E87.1 Hypo-osmolality and hyponatremia; L02.415 Cutaneous abscess of right lower limb; F11.29 Opioid dependence with unspecified opioid-induced disorder; R76.8 Other specified abnormal immunological findings in serum; F32.9 Major depressive disorder, single episode, unspecified; R00.0 Tachycardia, unspecified; D64.9 Anemia, unspecified; R74.01 Elevation of levels of liver transaminase levels; E78.5 Hyperlipidemia, unspecified; B95.62 Methicillin resistant Staphylococcus aureus infection as the cause of diseases classified elsewhere; Z87.891 Personal history of nicotine dependence; Z82.49 Family history of ischemic heart disease and other diseases of the circulatory system; Z82.3 Family history of stroke; Z82.69 Family history of other diseases of the musculoskeletal system and connective tissue; Z80.8 Family history of malignant neoplasm of other organs or systems; Z90.49 Acquired absence of other specified parts of digestive tract

== ENCOUNTER 2020-09-24 11:46 | Emergency (ER) | payer MEDICAID ==
[~2020-09-24] VITALS: Wt 86.2 kg
[2020-09-24] MEDS ORDERED: DOXYCYCLINE100 M3 PO ×2 (13:56)
[2020-10-07] MEDS ORDERED: VITAMIN D350 MC2 PO (17:23)
[2020-10-07] MEDS ORDERED: DOXYCYCLINE100 M3 PO (17:23)
[2020-10-07] MEDS ORDERED: HYDROCODONE-AC1 EAC1 PO (17:23)
== END 2020-09-24 14:02 | disposition home or self-care (01) ==
LOC: ED 11:46
DX: T40.411A Poisoning by fentanyl or fentanyl analogs, accidental (unintentional), initial encounter (principal); R40.20 Unspecified coma; L03.90 Cellulitis, unspecified; Z79.2 Long term (current) use of antibiotics; Z90.49 Acquired absence of other specified parts of digestive tract; Z87.891 Personal history of nicotine dependence; Y92.89 Other specified places as the place of occurrence of the external cause

== ENCOUNTER 2021-11-01 15:02 | Emergency (ER) | payer OTHER ==
[~2021-11-01 15:02] MED LIST changes: +HYDROCODONE-AC1 EAC1 PO; +VITAMIN D350 MC2 PO
== END 2021-11-01 16:00 | disposition left against medical advice (07) ==
LOC: ED 15:02
DX: R06.02 Shortness of breath (principal); Z53.21 Procedure and treatment not carried out due to patient leaving prior to being seen by health care provider

== ENCOUNTER 2021-11-01 17:25 | Inpatient (IN) | payer OTHER ==
[~2021-11-01] VITALS: Ht 185.4 cm; Wt 80.5 kg
[2021-11-01 17:34] VITALS: BP 128/85
[2021-11-01 18:23] LABS: BASO # 0.1 10*3/uL (0.0-0.1); BASO % 0.8 % (0.0-1.0); EOS # 0.2 10*3/uL (0.0-0.4); EOS % 2.6 % (1.0-4.0); HEMATOCRIT 42.7 % (42.0-52.0); LYMPH # 1.8 10*3/uL (1.3-4.4); LYMPH % 24.1 % (27.0-41.0); MEAN CELL VOLUME 83.6 fl (80.0-94.0); MEAN CORPUSCULAR HGB CONC 33.5 g/dl (33.0-37.0); MEAN PLATELET VOLUME 8.9 fl (9.6-12.3); MONO # 0.4 10*3/uL (0.1-1.0); MONO % 5.7 % (3.0-9.0); NEUT # 4.8 10*3/uL (2.3-7.9); NEUT % 66.5 % (47.0-73.0); PLATELET COUNT AUTOMATED 432 10*3/uL (130-400); RED BLOOD COUNT 5.11 10*6/uL (4.50-5.90); RED CELL DISTRI WIDTH 12.9 % (0-14.5); WHITE BLOOD COUNT 7.3 10*3/uL (4.8-10.8)
[2021-11-01 18:34] VITALS: BP 107/80
[2021-11-01 18:34] LABS: INTERNATIONAL NORM RATIO 1.1 (2.0-3.5)
[2021-11-01 18:39] LABS: ALKALINE PHOSPHATASE 83 U/L (45-117); BUN 7 mg/dl (7-24); CHLORIDE 103 mmol/L (98-107); CPK 61 U/L (39-308); CREATININE 1.11 mg/dL (0.70-1.30); POTASSIUM 3.3 mmol/L (3.5-5.1); SGOT/AST 27 IU/L (3-35); SGPT/ALT 47 U/L (12-78); SODIUM 139 mmol/L (136-145); TOTAL PROTEIN 9.8 gm/dL (6.4-8.2)
[2021-11-01 19:22] VITALS: BP 119/82
[2021-11-01 22:49] VITALS: BP 121/81
[2021-11-01 23:05] VITALS: BP 119/93
[2021-11-02 05:31] LABS: ALKALINE PHOSPHATASE 65 U/L (45-117); BUN 9 mg/dl (7-24); CHLORIDE 103 mmol/L (98-107); CREATININE 0.97 mg/dL (0.70-1.30); POTASSIUM 3.3 mmol/L (3.5-5.1); SGOT/AST 20 IU/L (3-35); SGPT/ALT 33 U/L (12-78); SODIUM 139 mmol/L (136-145); TOTAL PROTEIN 7.5 gm/dL (6.4-8.2)
[2021-11-02 06:12] LABS: BASO # 0.1 10*3/uL (0.0-0.1); BASO % 0.9 % (0.0-1.0); EOS # 0.4 10*3/uL (0.0-0.4); EOS % 4.9 % (1.0-4.0); LYMPH # 2.7 10*3/uL (1.3-4.4); LYMPH % 34.3 % (27.0-41.0); MEAN CELL VOLUME 85.1 fl (80.0-94.0); MEAN PLATELET VOLUME 9.3 fl (9.6-12.3); MONO # 0.7 10*3/uL (0.1-1.0); MONO % 8.9 % (3.0-9.0); NEUT % 50.7 % (47.0-73.0); PLATELET COUNT AUTOMATED 361 10*3/uL (130-400); RED BLOOD COUNT 4.35 10*6/uL (4.50-5.90); RED CELL DISTRI WIDTH 13.2 % (0-14.5); WHITE BLOOD COUNT 7.9 10*3/uL (4.8-10.8)
[2021-11-02 08:00] VITALS: BP 114/63
[2021-11-02 11:47] VITALS: BP 131/78
[2021-11-02 14:30] LABS: BILIRUBIN Negative (Negative); BLOOD Negative (Negative); CLARITY Cloudy (Clear); COLOR Yellow (Yellow); GLUCOSE Negative (Negative); KETONE Trace (Negative); LEUKO ESTERASE Negative (Negative); NITRITE Negative (Negative); SPECIFIC GRAVITY >= 1.030 (1.001-1.030)
[2021-11-02 14:38] LABS: URINE AMPHETAMINES > 1000 (1000ng/ml); URINE BARBITURATES < 200 (200ng/ml); URINE BENZODIAZEPINES < 200 (200ng/ml); URINE CANNABINOIDS (THC) < 50 (50ng/ml); URINE COCAINE > 300 (300ng/ml); URINE METHADONE < 300 (300ng/ml); URINE OPIATES < 300 (300ng/ml)
[2021-11-02 14:40] LABS: BACTERIA 3+
[2021-11-02 14:41] LABS: HYALINE CAST 0-2; WBC 0-2 wbc/hpf (0-5)
[2021-11-02 14:42] LABS: EPITHELIAL CELLS 0-2; URIC ACID CRYSTALS 1+
[2021-11-02 14:43] LABS: URINE PHENCYCLIDINE < 25 (25ng/ml)
[2021-11-02 15:59] VITALS: BP 126/95
== END 2021-11-02 17:51 | disposition left against medical advice (07) | DRG 571 ==
LOC: ED 17:25 → EDHOLD 22:41 → 4E 22:41
PROVIDERS: Internal Medicine; Physician Assistant; ADMIT Emergency Medicine; ATTEND Emergency Medicine
PROC: 0JBN0ZZ Excision of Right Lower Leg Subcutaneous Tissue and Fascia, Open Approach (ICD-10-PCS; principal; 2021-11-02)
DX: L03.115 Cellulitis of right lower limb (principal); E44.1 Mild protein-calorie malnutrition; R76.8 Other specified abnormal immunological findings in serum; L02.415 Cutaneous abscess of right lower limb; E78.5 Hyperlipidemia, unspecified; F32.9 Major depressive disorder, single episode, unspecified; D64.9 Anemia, unspecified; E87.6 Hypokalemia; R73.9 Hyperglycemia, unspecified; E83.41 Hypermagnesemia; M54.9 Dorsalgia, unspecified; R09.1 Pleurisy; F19.10 Other psychoactive substance abuse, uncomplicated; Z68.23 Body mass index [BMI] 23.0-23.9, adult; Z90.49 Acquired absence of other specified parts of digestive tract; Z82.49 Family history of ischemic heart disease and other diseases of the circulatory system; Z82.3 Family history of stroke; Z53.29 Procedure and treatment not carried out because of patient's decision for other reasons

== ENCOUNTER 2023-08-28 15:52 | Emergency (ER) | payer OTHER ==
[~2023-08-28] VITALS: Ht 185.4 cm; Wt 86.2 kg
[~2023-08-28 15:52] MED LIST changes: +CEPHALEXIN500 M1 PO
[2023-08-28] MEDS ORDERED: SODIUM CHLORIDE 0.9% 1,000 ML IV ONE (16:15)
[2023-08-28] MEDS ORDERED: Ondansetron Hydrochloride 4 MG/2 ML VIAL IV ONE (16:20)
[2023-08-28] MEDS ORDERED: Ketorolac Tromethamine 15 MG/ML VIAL IV ONE (16:20)
[2023-08-28] MEDS ORDERED: MORPHINE Sulfate 2 MG/ML SYR IV ONE (16:20)
[2023-08-28] MEDS ORDERED: Sulfamethoxazole/Trimethopri 1 TAB TAB PO ONE ×2 (16:25→17:50)
[2023-08-28] MEDS ORDERED: ceFAZolin sodium/sodium chlor 10 ML IV ONE (16:25)
[2023-08-28 16:44] LABS: BASO # 0.1 10*3/uL (0.0-0.1); BASO % 0.6 % (0.0-1.0); EOS # 0.2 10*3/uL (0.0-0.4); HEMATOCRIT 40.3 % (42.0-52.0); LYMPH # 0.8 10*3/uL (1.3-4.4); LYMPH % 9.9 % (27.0-41.0); MEAN CELL VOLUME 89.4 fl (80.0-94.0); MEAN CORPUSCULAR HGB 29.3 pg (27.0-31.0); MEAN CORPUSCULAR HGB CONC 32.8 g/dl (33.0-37.0); MEAN PLATELET VOLUME 8.7 fl (9.6-12.3); MONO # 0.4 10*3/uL (0.1-1.0); MONO % 4.8 % (3.0-9.0); NEUT # 6.5 10*3/uL (2.3-7.9); NEUT % 81.4 % (47.0-73.0); PLATELET COUNT AUTOMATED 223 10*3/uL (130-400); RED BLOOD COUNT 4.51 10*6/uL (4.50-5.90); RED CELL DISTRI WIDTH 12.4 % (0-14.5)
[2023-08-28 16:56] LABS: ALKALINE PHOSPHATASE 73 U/L (46-116); BUN 8 mg/dl (9-23); CHLORIDE 103 mmol/L (98-107); POTASSIUM 3.8 mmol/L (3.4-5.1); SGPT/ALT 62 U/L (5-49); TOTAL PROTEIN 7.1 gm/dL (6.0-8.0)
[2023-08-28] MEDS ORDERED: CEPHALEXIN500 M1 PO (17:24)
[2023-08-28] MEDS ORDERED: MELOXICAM15 MG PO (17:24)
[2023-08-28] MEDS ORDERED: SEPTDS PO (17:24)
[2023-08-28] MEDS ORDERED: CEPHALEXIN 500 MG CAP PO ONE (17:50)
[2023-08-28] MEDS ORDERED: Acetaminophen/Oxycodone 5 MG/325 MG TABLET PO ONE (17:50)
== END 2023-08-28 17:58 | disposition home or self-care (01) ==
LOC: ED 15:52
PROVIDERS: Emergency Medicine
DX: L03.115 Cellulitis of right lower limb (principal); Z90.49 Acquired absence of other specified parts of digestive tract; Z98.890 Other specified postprocedural states; F14.10 Cocaine abuse, uncomplicated; Z87.891 Personal history of nicotine dependence

== ENCOUNTER 2024-04-18 20:20 | Emergency (ER) | payer OTHER ==
[~2024-04-18] VITALS: Ht 185.4 cm; Wt 90.3 kg
[~2024-04-18 20:20] MED LIST changes: +MELOXICAM15 MG PO
[2024-04-18] MEDS ORDERED: VIBRAMYCIN100 MG PO (20:45)
[2024-04-18] MEDS ORDERED: CEPHALEXIN500 M1 PO (20:45)
[2024-04-18] MEDS ORDERED: Doxycycline Hyclate 100 MG CAP PO ONE (20:50)
[2024-04-18] MEDS ORDERED: Acetaminophen/Hydrocodone 5 MG/325 MG TABLET PO ONE (20:50)
[2024-04-18] MEDS ORDERED: CEPHALEXIN 500 MG CAP PO ONE (20:50)
== END 2024-04-18 20:58 | disposition home or self-care (01) ==
LOC: ED 20:20
DX: L02.415 Cutaneous abscess of right lower limb (principal); Z90.49 Acquired absence of other specified parts of digestive tract; Z98.890 Other specified postprocedural states; Z87.891 Personal history of nicotine dependence